=== PATIENT | female | born 1985 | race Caucasian/White ===

== ENCOUNTER 2020-09-03 10:02 | Day surgery (SDC) | payer OTHER ==
[2020-09-01 11:58] LABS: BASOPHILS % (AUTO) 1 % (0-1); EOSINOPHILS % (AUTO) 0 % (1-7); LYMPHOCYTES % (AUTO) 33 % (22-44); MEAN CORPUSCULAR HEMOGLOBIN 29.6 pg (27.0-34.8); MEAN CORPUSCULAR HGB CONC 33.2 g/dL (32.4-35.8); MEAN PLATELET VOLUME 9.4 fL (7.4-10.4); MONOCYTES % (AUTO) 6 % (2-9); NEUTROPHILS % (AUTO) 60 % (42-75); PLATELET COUNT 331 x10^3/uL (130-400); RED BLOOD COUNT 4.71 x10^6/uL (3.82-5.3); RED CELL DISTRIBUTION WIDTH 12.7 % (9.6-15.2)
[2020-09-01 12:06] LABS: MD NO
[2020-09-01 12:08] LABS: CHLORIDE 106 mmol/L (98-107)
[2020-09-01 12:18] LABS: ALANINE AMINOTRANSFERASE 27 U/L (12-78); ALBUMIN 4.2 g/dL (3.4-5.0); ALKALINE PHOSPHATASE 59 U/L (45-117); ANION GAP 9 mmol/L (5-15); BILIRUBIN,TOTAL 0.4 mg/dL (0.2-1.0); CALCIUM 9.5 mg/dL (8.5-10.1); CREATININE 1.01 mg/dL (0.55-1.02); TOTAL PROTEIN 8.1 g/dL (6.4-8.2)
[~2020-09-03] VITALS: Ht 162.6 cm; Wt 65.5 kg
[~2020-09-03 10:02] MED LIST: LEVO1TAB10 PO; PLEXUS PROBIOTIC PO; [UNRECOGNIZED DRUG - OTHER] PO
[2020-09-03] MEDS ORDERED: CHLORHEXIDINE 15 ML UDC MM ONE (10:30)
[2020-09-03] MEDS ORDERED: LACTATED RINGERS 1,000 ML IV SCH (10:30)
[2020-09-03 10:35] VITALS: BP 120/78
[2020-09-03] MEDS ORDERED: FENTANYL PF 250 MCG/5ML ONE (11:18)
[2020-09-03] MEDS ORDERED: MIDAZOLAM 1 MG/ML, 2ML ONE (11:18)
[2020-09-03] MEDS ORDERED: BUPIVACAINE/PF 0.25% ONE (11:42)
[2020-09-03] MEDS ORDERED: EPINEPHRINE 1 MG/ML, 1ML ONE (11:42)
[2020-09-03] MEDS ORDERED: FLUORESCEIN SODIUM 500 MG/5 ML ONE (11:42)
[2020-09-03] MEDS ORDERED: FAMOTIDINE 20 MG TABLET PO ONE (12:00)
[2020-09-03] MEDS ORDERED: ACETAMINOPHEN 500 MG TABLET PO ONE (12:00)
[2020-09-03] MEDS ORDERED: DEXAMETHASONE 4 MG/ML, 1ML ONE ×2 (12:25)
[2020-09-03] MEDS ORDERED: CEFAZOLIN 1,000 MG ONE (12:26)
[2020-09-03] MEDS ORDERED: ROCURONIUM 10MG/ML,5ML ONE (12:31)
[2020-09-03] MEDS ORDERED: PROPOFOL 10 MG/ML, 20ML ONE (12:31)
[2020-09-03] MEDS ORDERED: ONDANSETRON 2MG/ML, 2ML ONE ×2 (13:07→13:51)
[2020-09-03] MEDS ORDERED: FENTANYL PF 100 MCG/2ML ONE ×2 (13:51→14:06)
[2020-09-03] MEDS: FENTANYL PF 100 MCG/2ML IV PRN ×2 (13:54→14:02)
[2020-09-03] MEDS ORDERED: HYDROmorphone 1 MG/ML, 1ML INJ ONE (14:06)
[2020-09-03] MEDS: HYDROmorphone 1 MG/ML, 1ML INJ IVPush PRN ×2 (14:11→14:19)
[2020-09-03] MEDS ORDERED: ONDANSETRON 2MG/ML, 2ML IVPush PRN (14:30)
[2020-09-03] MEDS ORDERED: hydrALAzine 20 MG/ML, 1ML IV PRN (14:30)
[2020-09-03] MEDS ORDERED: LABETALOL 5MG/ML, 20ML IV PRN (14:30)
[2020-09-03] MEDS ORDERED: KETOROLAC 30 MG/1 ML IVPush PRN (14:30)
[2020-09-03] MEDS ORDERED: PROMETHAZINE 25 MG/ML, 1ML IVPush PRN (14:30)
[2020-09-03] MEDS ORDERED: MEPERIDINE/PF 25MG/0.5ML IVPush PRN (14:30)
[2020-09-03] MEDS ORDERED: METHOCARBAMOL 1,000 MG in DEXTROSE 5% 100 ML IV PRN (14:30)
[2020-09-03] MEDS ORDERED: OXYcodone 5 MG/5 ML ORAL.SOL UDC PO PRN (14:30)
[2020-09-03] MEDS ORDERED: PROMETHAZINE 25 MG/ML, 1ML ONE (15:07)
[2020-09-03 18:49] LABS: BASOPHILS % (AUTO) 0 % (0-1); EOSINOPHILS % (AUTO) 0 % (1-7); LYMPHOCYTES % (AUTO) 4 % (22-44); MEAN CORPUSCULAR HEMOGLOBIN 30.4 pg (27.0-34.8); MEAN PLATELET VOLUME 9.1 fL (7.4-10.4); MONOCYTES % (AUTO) 1 % (2-9); NEUTROPHILS % (AUTO) 94 % (42-75); PLATELET COUNT 253 x10^3/uL (130-400); RED BLOOD COUNT 3.85 x10^6/uL (3.82-5.3); RED CELL DISTRIBUTION WIDTH 12.8 % (9.6-15.2)
[2020-09-03 18:53] LABS: MD NO
== END 2020-09-03 19:15 | disposition home or self-care (01) ==
LOC: OUT 10:02 → EDSTATUS 12:00 → OUT 19:15
PROVIDERS: ATTEND Obstetrics & Gynecology
DX: N92.0 Excessive and frequent menstruation with regular cycle (principal); G43.909 Migraine, unspecified, not intractable, without status migrainosus; Z20.828 Contact with and (suspected) exposure to other viral communicable diseases; Z79.3 Long term (current) use of hormonal contraceptives; Z88.5 Allergy status to narcotic agent; Z98.890 Other specified postprocedural states
CPT/HCPCS: 36415; 58262; 80053; 84703; 85025; 86850; 86900; 87635; 88307; J0171; J0690; J1100; J1170; J2250; J2405; J2550; J2704; J2800; J3010; J7120